=== PATIENT | male | born 1990 | race Caucasian/White ===

== ENCOUNTER → 2018-12-19 13:33 | Outpatient (CLI) | payer BC, SELFPAY ==
--- NOTE | 2018-12-19 13:42 | CT_ITS ---
CT soft tissue neck w con Ordering Physician: Ruthie De La Cruz Patient Age: 28 years: Male HISTORY: ITS.REASON: PAIN IN THROAT Difficulty swallowing. TECHNIQUE: Helical CT scanning performed through the neck following 75 cc Optiray 350.. Axial sagittal and coronal reconstructions performed on CT workstation. All CT scans at this facility used one or more dose reduction techniques , viz: automatic exposure control, ma/Kv adjustment per patient's size, (including targeted exam where dose matched to the indication; i.e. head); or iterative reconstruction technique COMPARISON :None FINDINGS . Parotid glands appear symmetric and normal size. Submandibular glands unremarkable.. The epiglottis appears normal. Prevertebral/retropharyngeal soft tissues normal . [place] tonsils are minimal or have been have been removed. (more likely removed as suggested by history) However I would note patient does have some generous lymphoid tissue along the base the tongue/. Specifically this generous lingual tonsil, extends down to partially fill the vallecula is seen on sagittal image 31 and adjacent views.. This generous lymphoid tissue also seen on axial images 44-49 here partially filling space of the vallecula.. I would speculate that this may give breast to could contribute to some dysphagia symptoms resuming patient does not sound to have globus pharyngeneus type symptoms otherwise... If symptoms do not improve or progressionConsider ENT consult. No significant adenoidal hypertrophy. No prominent cervical adenopathy otherwise seen. No neck masses elsewhere.. C-spine with vertebral bodies intact no significant associated findings. Slight reversal of normal cervical curvature most likely due to positioning. Mandible as well as right and left TMJ appears satisfactory.. Incidental note retention cyst at the floor the right maxillary sinus 2.5 cm AP x 13 mm height. IMPRESSION 1. [place] Tonsils apparently been removed. 2. However we do see prominent lymphoid tissue at the lingual tonsil. Period this extends downward along the base of tongue partially filling the vallecula. Question significance but conceivably could give rise to some dysphagia symptoms. As discussed above. 3. Remainder the neck unremarkable
== END ==
PROVIDERS: PCP Nurse Practitioner Family; Visit Provider Nurse Practitioner Family
DX: R07.0 Pain in throat (principal)
CPT/HCPCS: 70491; Q9967

== ENCOUNTER 2020-04-16 19:29 | Emergency (ER) | payer BC, SELFPAY ==
[2020-04-16 19:41] VITALS: BP 132/88; PULSE 78; RESP 17; TEMP 36.7; O2SAT 100; BMI 29.0
[2020-04-16 20:00] VITALS: BP 134/88; PULSE 69; RESP 18; O2SAT 97
[2020-04-16 20:27] VITALS: BP 132/78; PULSE 75; RESP 16; TEMP 36.8; O2SAT 98
--- NOTE | 2020-04-16 21:05 | HMH.EDEYEP ---
ED Disposition Clinical Impression: Corneal abrasion, left, Corneal abrasion Disposition: Home, Self-Care Condition on Discharge: Good Instructions: DI for Eye Pain Referrals: Liam Adkins MD [Primary Care Provider] - - Critical Care Critical Care Time: No Attestation: On 04/16/20, the high probability of a clinically significant, sudden or life threatening deterioration of the following system(s) required my full and direct attention, intervention and personal management. The time I documented below is in addition to time spent performing reported procedures but includes the following listed in this critical care notation. Medical Decision Making - Medical Records Medical records reviewed: Yes: I reviewed the patient's medical records. - Kwame Inquiry Pt receiving controlled substance: No Vital Signs: 04/16/20 19:41 04/16/20 20:00 04/16/20 20:27 Temperature 98.1 F 98.2 F Temperature Source Oral Oral Pulse Rate 75 Pulse Rate [Right Brachial] 78 69 Respiratory Rate 17 18 16 Blood Pressure 132/78 Blood Pressure [Right Arm] 132/88 134/88 Blood Pressure Mean [Right Arm] 102 103 Blood Pressure Source Automatic Cuff Blood Pressure Source [Right Arm] Automatic Cuff Automatic Cuff Blood Pressure Position Sitting Blood Pressure Position [Right Arm] Sitting Supine 02 Sat by Pulse Oximetry 100 97 Oxygen Delivery Method Room Air Room Air Room Air - Lab Data Lab results reviewed: Yes: I reviewed the patient's lab results. Eye Problem HPI - General Chief complaint: Eye Problems Stated complaint: AO 0730@1400 A wire scratch L Eye Time Seen by Provider: 04/16/20 20:08 Mode of Arrival: Family Vehicle Source of Information: Patient Limitations: No Limitations Description of Symptoms (Recalled from ER Triage Doc. by RN): pt presents with left eye irritation after accidentally scratching it with a wire earlier this date. vision is present although blurry. right eye wnl. - History of Present Illness HPI Narrative: 29-year-old male presents emergency department with left eye pain. He was at work and a instrument came across his face and hit him in the eye and since then he has been complaining about some eye redness and some eye pain. This took place just prior to arrival. He states that the eye pain is about 3 out of 10 classifies like a burning, irritation-like pain. He says alleviating factors include closing the eye and exacerbating factors include keeping the eye open and also bright lights. Patient denies any recent cough or shortness of breath, patient denies any sore throat or headache, patient denies any loss of taste or smell, patient denies any malaise or fatigue, patient denies any abdominal pain nausea vomiting or diarrhea. - Related Data Home Medications Medication Instructions Recorded Confirmed No Known Home Medications 04/16/20 04/16/20 Allergies Allergy/AdvReac Type Severity Reaction Status Date / Time cefaclor [From [facility]] Allergy Unknown I-RASH Verified 04/16/20 19:55 [facility] History - Hepatitis A Screen Drug use history?: No High risk sexual behaviors?: No History of sexually transmitted infection?: No Currently employed?: No Childcare worker?: No Do you have indoor plumbing?: Yes Do you have electricity?: Yes Attestation statement:: This patient has been screened for Hepatitis A risk factors. I have reviewed the patient's past medical history: Yes ROS Obtained: Yes All systems reviewed & no additional complaints - Constitutional Constitutional: Reports system reviewed and no additional complaints, except as docu - Eyes Eyes: Reports system reviewed and no additional complaints, except as docu - ENT Ears, Nose, Mouth, and Throat: Reports system reviewed and no additional complaints, except as docu - Cardiovascular Cardiovascular: Reports system reviewed and no additional complaints, except as docu - Respiratory Respiratory: Yes system r
--- NOTE | 2020-04-28 16:20 | PC.NURSE ---
MD used eye medications, pharmacy entered meds and charted out.
== END 2020-04-16 20:28 | disposition home or self-care (01) ==
PROVIDERS: Emergency Provider Emergency Medicine; PCP Internal Medicine Adolescent Medicine
DX: S05.02XA Injury of conjunctiva and corneal abrasion without foreign body, left eye, initial encounter (principal); W22.8XXA Striking against or struck by other objects, initial encounter; Y92.89 Other specified places as the place of occurrence of the external cause
CPT/HCPCS: 99282

== ENCOUNTER 2020-07-09 13:54 | Emergency (ER) | payer BC, SELFPAY ==
[2020-07-09 13:54] VITALS: BP 142/80; PULSE 92; RESP 16; TEMP 36.6; O2SAT 98; BMI 25.7
--- NOTE | 2020-07-09 14:19 | CT_ITS ---
PROCEDURE: CT ABDOMEN PELVIS WO CON CLINICAL INDICATION: R/O STONE Left flank pain radiating into the left lower quadrant COMPARISON: CT ABDPELW/O CT ABD PELVIS W/O CONTRAST from 05/31/2017 TECHNIQUE: Axial images obtained with sagittal and coronal reformats. All CT scans at the facility use one or more dose reduction, viz: automated exposure control, ma/kV adjustment per patient size (including targeted exams where dose is matched to indication, i.e. head), or iterative reconstruction technique. FINDINGS: LOWER THORAX: Calcified granuloma right lung base. ABDOMEN & PELVIS: The liver, spleen, adrenal glands, pancreas, and gallbladder have an unremarkable appearance. There is right nephrolithiasis with the largest stone in the upper pole at 6 mm. Small left renal calculi are also present with 2 3 mm stones in the lower pole. There is a 6 mm stone in the mid aspect of the left ureter at the L4 level. This is causing mild left hydronephrosis and proximal hydroureter. No intestinal obstruction or free air. Unremarkable appendix. No pelvic mass or abnormal fluid collection. Central prostate calcification is present. No acute bony findings. IMPRESSION: 1. 6 mm left mid ureteral calculus causing mild left-sided hydronephrosis and hydroureter. 2. Bilateral nephrolithiasis. Dictated by: Bradley Lagos MD 07/09/2020 14:52 Bradley Lagos MD in [place] 07/09/2020 14:52
--- NOTE | 2020-07-09 14:28 | HMH.EDGENADL ---
ED Disposition Clinical Impression: Kidney stone on left side Disposition: Home, Self-Care Condition on Discharge: Good Instructions: DI for Kidney Stones Prescriptions: Tamsulosin HCl [Flomax 0.4mg capsule] 0.4 mg PO HS #10 cap Transmission Status: Pending to [facility] Ketorolac Tromethamine [Toradol 10mg tablet] 10 mg PO Q4H 5 Days #30 tab Transmission Status: Pending to [facility] Ondansetron [Zofran 4mg ODT] 4 mg PO TIDP PRN #10 tab PRN Reason: Nausea Transmission Status: Pending to [facility] Referrals: Liam Adkins MD [Primary Care Provider] - Edvin Alarcon MD [Staff Physician] - - Critical Care Critical Care Time: No Attestation: On 07/09/20, the high probability of a clinically significant, sudden or life threatening deterioration of the following system(s) required my full and direct attention, intervention and personal management. The time I documented below is in addition to time spent performing reported procedures but includes the following listed in this critical care notation. Medical Decision Making - Medical Records Medical records reviewed: Yes: I reviewed the patient's medical records. - Kwame Inquiry Pt receiving controlled substance: No Vital Signs: 07/09/20 13:54 Temperature 98 F Temperature Source Oral Pulse Rate [Radial] 92 H Respiratory Rate 16 Blood Pressure [Right Arm] 142/80 H Blood Pressure Mean [Right Arm] 100 Blood Pressure Position [Right Arm] Sitting 02 Sat by Pulse Oximetry 98 Oxygen Delivery Method Room Air - Lab Data Lab Results 07/09/20 14:25: WBC 12.5 H, RBC 5.48, Hgb 16.6, Hct 49.3, MCV 90.1, MCH 30.3, MCHC 33.6, RDW 13.3, Plt Count 248, MPV 7.7, Neut % (Auto) 84.9 H, Lymph % (Auto) 9.0 L, Bee % (Auto) 4.8, Eos % (Auto) 0.9, Baso % (Auto) 0.3, Neut # (Auto) 10.6 H, Lymph # (Auto) 1.1, Bee # (Auto) 0.6, Eos # (Auto) 0.1, Baso # (Auto) 0.0 07/09/20 14:25: Sodium 138, Potassium 4.3, Chloride 100, Carbon Dioxide 29, Anion Gap 13.3, BUN 17, Creatinine 1.20, Estimated Creat Clear 114, Estimated GFR 72, Est GFR ( Amer) 87, Glucose 110 H, Calcium 9.7, Total Bilirubin 0.9, AST 35, ALT 28, Alkaline Phosphatase 64, Total Protein 7.5, Albumin 4.8, Globulin 2.7, Albumin/Globulin Ratio 1.8 07/09/20 15:14: Urine Color Yellow, Urine Appearance Cloudy, Urine pH 8.0, Ur Specific Drums 1.015, Urine Protein Negative, Urine Glucose (UA) Negative, Urine Ketones 1+, Urine Blood 3+, Urine Nitrate Negative, Urine Bilirubin Negative, Urine Urobilinogen 1.0, Ur Leukocyte Esterase Negative, Urine RBC 50-100, Urine WBC None, Ur Squamous Epith Cells 3-5, Amorphous Sediment 2+, Urine Bacteria None Result diagrams: 07/09/20 14:25 07/09/20 14:25 Orders (Tests/Meds): ED MEDICATIONS Discontinued Medications Generic Name Dose Route Start Last Admin Trade Name Freq PRN Reason Stop Dose Admin Sodium Chloride 1,000 mls @ 999 mls/hr 07/09/20 14:30 07/09/20 14:27 Sod Chlor 0.9% 1000ml Bag IV 07/09/20 15:30 999 mls/hr .Q1H1M CESAR Administration Ketorolac Tromethamine 30 mg 07/09/20 14:19 07/09/20 14:27 Ketorolac 30mg/Ml Vial IV 07/09/20 14:20 30 mg ONCE ONE Administration Ondansetron HCl 4 mg 07/09/20 14:20 07/09/20 14:27 Ondansetron 4mg/2ml Vial IV 07/09/20 14:21 4 mg ONCE ONE Administration - CT Data CT Scan: Abdomen, Pelvis Time Received: 15:[address] Reviewed: Yes: I have reviewed the patient's CT results, I have viewed the radiologist's interpretation Findings Narrative: 1. 6 mm left mid ureteral calculus causing mild left-sided hydronephrosis and hydroureter. 2. Bilateral nephrolithiasis. - Reevaluation(s) Time: 15:58 Reevaluation #1: On reevaluation, the patient is feeling much better. His pain is improved. He was able to urinate without difficulty. The patient does have a 6 mm kidney stone in the left ureter with hydronephrosis. I am concerned for possible obstruction. I
--- NOTE | 2020-07-09 14:34 | PC.NURSE ---
Pt to rad
[2020-07-09 14:35] LABS: Basophils % 0.3 % (0.1-2.0); Eosinophils # 0.1 K/mm3 (0.0-0.4); Eosinophils % 0.9 % (0.1-12.0); Hematocrit 49.3 % (42.0-52.0); Hemoglobin 16.6 g/dL (14.1-18.0); Lymphocytes # 1.1 K/mm3 (0.7-4.5); Mean Corpuscular HGB Conc 33.6 g/dL (31.8-35.4); Mean Corpuscular Hemoglobin 30.3 pg (27.0-31.2); Mean Corpuscular Volume 90.1 fl (80-94); Mean Platelet Volume 7.7 fl (7.4-10.4); Monocytes # 0.6 K/mm3 (0.1-1.0); Monocytes % 4.8 % (1.7-9.3); Neutrophils # 10.6 K/mm3 (1.8-7.8); Neutrophils % 84.9 % (37.0-80.0); Platelet Count 248 K/mm3 (142-424); Red Blood Count 5.48 M/mm3 (4.60-6.20); Red Cell Distribution Width 13.3 % (11.5-17.5); White Blood Count 12.5 K/mm3 (4.8-10.8)
[2020-07-09 14:41] LABS: Chloride 100 mmol/L (98-107); Potassium 4.3 mmoL/L (3.5-5.1); Sodium 138 mmol/L (136-145)
[2020-07-09 14:43] LABS: Alanine Aminotransferase 28 U/L (12-78); Aspartate Amino Transferase 35 U/L (17-59); Blood Urea Nitrogen 17 mg/dl (9-20); Creatinine Clearance Estimated 114 mL/min (50-200); Estimated Glomerular Filt Rate 72 ml/min (>60); GFR (African American) 87 ML/MIN (>60)
[2020-07-09 14:44] LABS: Albumin Level 4.8 g/dl (3.5-5.0); Albumin/Globulin Ratio 1.8 (1.1-1.8); Alkaline Phosphatase 64 U/L (38-126); Anion Gap 13.3 mEq/L (5-15); Bilirubin,Total 0.9 mg/dl (0.2-1.3); Calcium 9.7 mg/dl (8.4-10.2); Carbon Dioxide 29 mmol/L (22.0-30.0); Globulin 2.7 g/dL (1.3-3.2); Glucose 110 mg/dl (74-100); Total Protein,Serum 7.5 g/dl (6.3-8.2)
[2020-07-09 15:18] LABS: Microscopic, Urine URINE MICROSCOPIC (MICROSCOPIC)
[2020-07-09 15:20] LABS: Appearance,Urine CLOUDY (Clear); Bilirubin,Urine Negative (Negative); Blood, Urine 3+ (Negative); Color,Urine YELLOW (Yellow); Glucose,Urine (UA) Negative (Negative); Ketones,Urine 1+ (Negative); Leukocyte Esterase,Urine Negative (Negative); Nitrate,Urine Negative (Negative); Protein,Urine Negative (Negative); Specific Gravity, Urine 1.015 (1.005-1.030)
[2020-07-09 15:34] LABS: Amorphous Sediment,Urine 2+ /lpf; RBC,Urine 50-100 #/hpf (0-3)
[2020-07-09 15:38] VITALS: BP 140/69; PULSE 80; O2SAT 99
[2020-07-09 16:11] VITALS: BP 132/74; PULSE 78; RESP 18; TEMP 36.6; O2SAT 98
== END 2020-07-09 16:12 | disposition home or self-care (01) ==
PROVIDERS: Emergency Provider Emergency Medicine; PCP Internal Medicine Adolescent Medicine
DX: N20.0 Calculus of kidney (principal); N13.39 Other hydronephrosis; Z88.1 Allergy status to other antibiotic agents
CPT/HCPCS: 74176; 80053; 81001; 85025; 96365; 96375; 99283; J2405

== ENCOUNTER → 2020-09-17 12:06 | Outpatient (CLI) | payer BC, SELFPAY ==
--- NOTE | 2020-09-17 12:10 | XR_ITS ---
PROCEDURE: XR KUB CLINICAL INDICATION: DYSURIA, RULE OUT KIDNEY STONE COMPARISON: No exams were available for comparison FINDINGS: Gas pattern-The bowel gas pattern is unremarkable. No obvious obstruction. There is a moderate amount stool in the ascending colon and hepatic flexure. The right renal shadow is obscured by overlying stool and bowel gas, there is a tiny 1 mm calcification overlying the lower pole left kidney. There are a couple of small calcifications on each size of the pelvis likely phleboliths.. The lumbar spine and visualized portion of the pelvis appear normal. IMPRESSION: Possible tiny calculus lower pole left kidney, right kidney on adequately evaluated for calcifications on these films Dictated by: Dr. Krishna Ritter MD 09/17/2020 16:03 Dr. Krishna Ritter MD in [place] 09/17/2020 16:03
== END ==
PROVIDERS: PCP Nurse Practitioner; Visit Provider Nurse Practitioner
DX: R30.0 Dysuria (principal)
CPT/HCPCS: 74018

== ENCOUNTER → 2023-07-11 07:01 | Outpatient (CLI) | payer OTHER, SELFPAY ==
--- NOTE | 2023-07-11 07:01 | CT_ITS ---
FINAL REPORT TECHNIQUE: Then section axial CT images of the chest were obtained with contrast. Three-D reformatted images were also obtained.This study was performed with techniques to keep radiation doses as low as reasonably achievable (ALARA). Individualized dose reduction techniques using automated exposure control or adjustment of mA and/or kV according to the patient''s size were employed. CLINICAL HISTORY: Hemoptysis FINDINGS: There is no evidence of pulmonary embolism. There is no evidence of thoracic aortic aneurysm or dissection. There is no evidence of mediastinal or hilar mass or adenopathy. There is mild scarring. There are multiple calcified granulomas. There is no evidence of pulmonary mass or suspicious nodule. No localized inflammatory process is seen within the lungs. Limited images of the upper abdomen are unremarkable. IMPRESSION: 1. No evidence of pulmonary embolism. 2. No mass or localized inflammatory process. Reviewed, Interpreted and Dictated by Marco Kimble III, MD Transcribed by Juan Richards Authenticated and [facility]
[2023-07-11 08:40] VITALS: PULSE 82; PULSE 84
== END ==
PROVIDERS: PCP Family Medicine; Visit Provider Internal Medicine Pulmonary Disease
DX: R07.9 Chest pain, unspecified (principal); R04.2 Hemoptysis
CPT/HCPCS: 71275; 94060; 94618; 94640; 94727; 94729; Q9967

== ENCOUNTER 2024-12-14 00:02 | Emergency (ER) | payer OTHER, BC, SELFPAY ==
[2024-12-14 00:14] VITALS: BP 155/99; PULSE 110; RESP 18; TEMP 36.7; O2SAT 99; BMI 27.7
[2024-12-14] MEDS: DOXYCYCLINE HYCL 100 MG TABLET PO (00:48)
[2024-12-14] MEDS: BACITRACIN ZINC OINT 30GM TUBE TP (00:48)
[2024-12-14 01:03] VITALS: BP 140/87; PULSE 98; RESP 20; TEMP 37.2; O2SAT 100
--- NOTE | 2024-12-14 04:17 | ED_ITS ---
Discharge Plan Disposition Patient Disposition: Home, Self-Care Condition: Good Prescriptions Prescriptions: New doxycycline hyclate 100 mg tablet 100 mg PO BID 7 Days Qty: 14 0RF No Action amoxicillin-pot clavulanate 875-125 mg tablet 1 tab PO BID 10 Days Qty: 20 0RF naproxen sodium [Aleve] 220 mg tablet 220 mg PO BID PRN cetirizine [Zyrtec] 10 mg tablet 10 mg PO DAILY PRN fluticasone propionate [Flonase Allergy Relief] 50 mcg/actuation spray,suspension 2 spray intranasal DAILY 90 Days Qty: 16 2RF Rx Instructions: administer into each nostril budesonide-formoterol [Symbicort] 160-4.5 mcg/actuation HFA aerosol inhaler 2 puff inhalation BID 90 Days Qty: 10.2 5RF Referrals Follow up/Referrals: Maritza Machado APRN [Primary Care Provider] - See instructions Activity Restrictions/Add. Instructions Additional Instructions/Restrictions: You were evaluated in the ER and are appropriate for discharge at this time. Take the prescribed doxycycline as directed. Do not skip doses, do not stop taking it early. Drink a full glass of water and stay sitting upright for 30 minutes after taking this medication to avoid side effects. Keep the wound clean and dry. You can shower/bathe as normal. Use the provided bacitracin ointment on it twice daily. Monitor for any extension of the infection outside of the marked areas. Follow-up with your primary care doctor for reevaluation. Return to the ER with any new, worsening, or otherwise concerning symptoms including extension of the infection outside of the marked area, worsening pain, fevers, or any other new or concerning symptoms. Clinical Impressions Clinical Impression: Cellulitis of forearm, left Instructions Patient Instructions: DI for Skin Abscess Print Language Print Language: Czech Discharge ED Provider: Teresa Quesada General Adult HPI General Chief complaint: Skin/Abscess/Foreign Body Stated complaint: burn L forearm, possibly infected Time Seen by Provider: 12/14/24 00:34 Mode of Arrival: Ambulatory Source of Information: Patient Description of Symptoms (Recalled from ER Triage Doc. by RN): PT HERE W/ L FOREARM BURN X2 DAYS AGO THAT OCCURED WHILE USIG A POWER DRILL. PT NOTICED REDNESS/STREAKING TODAY. DENIES FEVER History of Present Illness HPI narrative: 34-year-old male with history of asthma on as needed albuterol presents to the ER with concerns of forearm infection. He reports 2 days ago he sustained an accidental burn from the bit of a power drill. He states he has noticed increased redness and this evening noticed streaking up the arm from the wound. He states there is mild pain in the area of redness, no numbness, tingling, or weakness. He denies fevers. 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 He states he has had bacteremia in the past but not endocarditis. He states no known history of MRSA. He reports no recent antibiotics. He states he became concerned when the streaking started and wants to avoid dangerous infection. Related Data Home Medications ?Medication ?Instructions ?Recorded ?Confirmed naproxen sodium 220 mg tablet 220 mg PO BID PRN 06/12/23 12/14/23 (Aleve) cetirizine 10 mg tablet (Zyrtec) 10 mg PO DAILY PRN 06/15/23 12/14/23 Previous Rx's ?Medication ?Instructions ?Recorded fluticasone propionate 50 2 spray intranasal DAILY 90 days 06/15/23 mcg/actuation nasal #16 grams spray,suspension (Flonase Allergy Relief) amoxicillin 875 mg-potassium 1 tab PO BID 10 days #20 tabs 12/14/23 clavulanate 125 mg tablet budesonide-formoterol HFA 160 2 puff inhalation BID 90 days 08/14/24 mcg-4.5 mcg/actuation aerosol #10.2 grams inhaler (Symbicort) doxycycline hyclate 100 mg tablet 100 mg PO BID 7 days #14 tabs 12/14/24 Allergies Allergy/AdvReac Type Severity Reaction Status Date / Time cefaclor (From [facility]) Allergy Unknown I-RASH Verified 12/14/23 13:43 [facility] Disclaimer: The information contained in this section may have been updated after the patient was seen, as this information can be updated by other users. Medical History Asthma History of asthma Smoking 1/2 pack a day or less History of smoking 10-25 pack years Dyspnea on exertion Allergic rhinitis Kidney failure PCL injury Surgical History History of surgery on arm History of hernia surgery History of tonsillectomy H/O knee surgery Family History Grandfather Alcoholism Father Adopted Alcoholism Mother Alcoholism FHx: mental illness Grandmother Alcoholism Social History Smoking Status: Current some day smoker alcohol intake: former counseling given: No substance use type: former substance user current occupational status: employed Travel in the last 8 weeks: None adopted: No caregiver/support person: No foster care: No household members: spouse and children housing: house lives independently: Yes marital status: number of children: 2 number of grandchildren: 0 Have you lived/traveled outside [place] in past 30 days?: No Contact w/someone who lives/traveled outside [place] past 30 days?: No Exposure to someone with infectious disease in past 14 days?: No Do you have a fever (greater than 100.4 F or 38 C)?: No Have you tested positive for COVID-19: No Exposed to someone with COVID-19 in past 14 days?: No Do you have a sore throat?: No Do you have a cough?: No Do you have any weakness?: No Do you have any diarrhea?: No Are you experiencing any unusual bleeding?: No Do you have any muscle aches/pain?: No Do you have any abdominal pain?: No Are you experiencing loss of taste or smell?: No Other Medical History Have you received the Flu Vaccine for this season: No Have you received the Pneumonia Vaccine: No ROS Obtained: Yes Systems reviewed as appropriate & no additional complaints except as documented Per HPI Physical Exam General General appearance: alert and in no apparent distress Head Head exam: atraumatic and normocephalic Eye Eye exam: Present PERRL and EOMI ENT ENT exam: Present mucous membranes moist Neck Neck exam: Present normal inspection and full ROM Chest Chest inspection: Present symmetric chest wall rise Respiratory Respiratory exam: Absent respiratory distress or stridor Cardiovascular Cardiovascular exam: Present regular rate and normal rhythm Abdominal Exam Abdominal exam: Present soft; Absent distention or tenderness Extremities Exam Extremities exam: Present full ROM and other (8mm wound on the palmar aspect of the left midshaft forearm with appropriate granulomatous tissue. There is surrounding erythema with mild induration up to 3 cm in diameter with 1 line of streaking proximally that does not reach the antecubital fossa. Patient had drawn a pen line around the area ) Neurological Exam Neurological exam: Present alert and oriented X3; Absent motor sensory deficit Psychiatric Psychiatric exam: Present normal affect and normal mood Skin Skin exam: Present warm and dry Medical Decision Making Medical Records Medical records reviewed: Yes I reviewed the patient's medical records. Screening: Per USPSTF and CDC recommendations, given the prevalence of disease in our region, it is our hospital?s policy to screen for HIV and viral Hepatitis for all patients aged 18 and over and those with ongoing risk factors. MR Comment: From my review of records most recent treatment with antibiotics was in November 2023 when he was diagnosed with sinusitis and treated with Augmentin. Kwame Inquiry Pt receiving controlled substance: No Vital Signs: 12/14/24 00:14 12/14/24 01:03 Temperature 98.1 F 98.9 F Temperature Source Oral Oral Pulse Rate 98 H Pulse Rate [Apical] 110 H Respiratory Rate 18 20 Blood Pressure 140/87 Blood Pressure [Right Arm] 155/99 H Blood Pressure Mean [Right Arm] 117 02 Sat by Pulse Oximetry 99 Oxygen Delivery Method Room Air Room Air Orders (Tests/Meds): ED MEDICATIONS Discontinued Medications Generic Name Dose Route Start Last Admin Trade Name Freq PRN Reason Stop Dose Admin Bacitracin 1 gm 12/14/24 00:45 12/14/24 00:48 Bacitracin Zinc Oint 30gm Tube TP 12/14/24 00:46 1 gm ONCE ONE Administration Doxycycline Hyclate 100 mg 12/14/24 00:43 12/14/24 00:48 Doxycycline Hycl 100 Mg Tablet PO 12/14/24 00:44 100 mg ONCE ONE Administration ORDERS Category Date Time Status POCUS Point of Care (ER Only) Stat Exams 12/14/24 00:35 Completed Medical Decision Narrative: In summary, 34-year-old male presents to the ER with concerns of left forearm infection and wound. Differential diagnosis includes but is not limited to cellulitis, abscess, foreign body. Patient has a previous history of IV drug use and bacteremia reportedly more than a decade ago. This does always increase my concern for possible atypical infection, bacteremia, however patient has no complaints of chest pain, fevers, his vitals are normal and reassuring, heart rate was in the 80s during my exam. I do not believe he has any systemic infection. I have very low suspicion for foreign body as well. I performed [id number] bedside ultrasound of the left forearm which demonstrates mild cellulitic changes but no abscess or foreign body. See procedure note for details. Based on these findings and patient's clinical presentation I do not believe he requires labs or further imaging at this time. Patient reports he has previously tolerated doxycycline well. This antibiotic is appropriate for coverage of skin dana, cellulitis, as well as possible MRSA with his history. He received a dose of this in the ER and this was prescribed to him. Bacitracin was also applied to the wound. Skin marker was used to demarcate the outline of the area of erythema. Patient was given instructions on use of bacitracin and this was provided to him. He was also given instructions on continued symptomatic monitoring and management, antibiotic use, wound care, and close follow-up instructions as well as strict return precautions for the ER. He indicated understanding and the patient was discharged in stable condition. Procedures Miscellaneous Procedure Procedure Performed: Soft tissue ultrasound Indication: Soft tissue redness and swelling Identified structures: Soft tissue the left forearm Location: Palmar aspect of left forearm Findings: Mild cellulitis without abscess or foreign body, no air Impression: Mild cellulitis Images were saved to the permanent archive. The study was technically adequate. Soft tissue CPT codes Upper extremity: 03587-04 This study was performed by me, and I personally interpreted all images/videos. Based on my clinical judgment, these images were adequate and did not necessitate further imaging. Critical Care Critical Care Time Critical Care Time: No
== END 2024-12-14 01:05 | disposition home or self-care (01) ==
LOC: ER 00:51
PROVIDERS: Emergency Provider Emergency Medicine; PCP Nurse Practitioner Family
DX: L03.114 Cellulitis of left upper limb (principal); F17.210 Nicotine dependence, cigarettes, uncomplicated; J45.909 Unspecified asthma, uncomplicated; T22.112A Burn of first degree of left forearm, initial encounter; T79.8XXA Other early complications of trauma, initial encounter; X17.XXXA Contact with hot engines, machinery and tools, initial encounter; F10.11 Alcohol abuse, in remission; F19.21 Other psychoactive substance dependence, in remission; Z88.1 Allergy status to other antibiotic agents; Z81.8 Family history of other mental and behavioral disorders; Z81.1 Family history of alcohol abuse and dependence
CPT/HCPCS: 99284